=== PATIENT | female | born 1955 | race African-American/Black ===

== ENCOUNTER 2020-11-28 10:30 | Emergency (ER) | payer OTHER, MEDICARE ==
[~2020-11-28] VITALS: Ht 162.6 cm; Wt 65.0 kg
[2020-11-28] MEDS ORDERED: HYDROCHLOROTHIAZIDE 12.5MG CAPSULE PO ONE (11:00)
[2020-11-28 12:55] LABS: BASOPHILS % 0.9 % (0.0-2.0); EOSINOPHILS % 1.7 % (0.0-5.0); HEMATOCRIT. 35.2 % (36.0-48.0); HEMOGLOBIN. 11.6 g/dL (12.0-16.0); LYMPHOCYTES % 14.4 % (20.0-50.0); MEAN CORPUSCULAR HEMOGLOBIN 29.9 pg (28.0-32.0); MEAN CORPUSCULAR VOLUME 90.5 fL (81.0-99.0); MEAN PLATELET VOLUME 8.6 fl (7.4-10.4); MONOCYTES % 6.6 % (2.0-8.0); NEUTROPHILS % 76.4 % (40.0-76.0); PLATELET 433 x1000/uL (130-400); RED BLOOD CELL COUNT 3.89 mill/uL (4.2-5.4); RED CELL DISTRIBUTION WIDTH 16.7 % (11.6-14.6)
[2020-11-28 12:58] LABS: CHLORIDE 104 mEq/L (98-107)
[2020-11-28 13:08] LABS: LDL CHOLESTEROL 94 mg/dL (5-100)
[2020-11-28 13:10] LABS: HDL CHOLESTEROL 44 mg/dL (40-59)
[2020-11-28 18:29] VITALS: BP 152/90
== END 2020-11-28 18:31 | disposition short-term general hospital (02) ==
LOC: ER 11:02 → EDBEDREQ 13:23 → ER 18:31 → CANBEDREQ 19:13
DX: R06.03 Acute respiratory distress (principal); R07.9 Chest pain, unspecified; D64.9 Anemia, unspecified; E88.09 Other disorders of plasma-protein metabolism, not elsewhere classified; G89.18 Other acute postprocedural pain; M25.561 Pain in right knee; E46 Unspecified protein-calorie malnutrition; R53.81 Other malaise; R53.83 Other fatigue; R01.1 Cardiac murmur, unspecified; D47.3 Essential (hemorrhagic) thrombocythemia; I11.0 Hypertensive heart disease with heart failure; I50.9 Heart failure, unspecified; Z87.440 Personal history of urinary (tract) infections; Z98.890 Other specified postprocedural states; Z96.659 Presence of unspecified artificial knee joint
CPT/HCPCS: 36415; 71045; 80053; 80061; 83605; 83880; 84484; 85025; 93005; 99285; Z7610